=== PATIENT | female | born 1965 | race Caucasian/White ===

== ENCOUNTER → 2024-12-04 | Outpatient (CLI) | payer OTHER ==
--- NOTE | 2024-12-04 11:33 | XR ---
EXAMINATION TYPE: XR lumbosacral spine min 4V DATE OF EXAM: 12/04/2024 11:23 AM INDICATION: Patient age:Female; 58 years old; Reason for study: [id number] IDD; [facility]. pain COMPARISON: None TECHNIQUE: Frontal, lateral , bilateral oblique and coned in L5-S1 lateral views of the spine. FINDINGS: There are 5 lumbar type vertebral bodies identified. No evidence of any acute osseous patho logy. No evidence of loss of vertebral body height is seen. There is normal alignment of the lumbar vertebral bodies. Minimal dextrocurvature of the lumbar spine. Multilevel disc space narrowing with e ndplate sclerosis. Multilevel facet arthropathy of the lower lumbar spine. IMPRESSION: 1. No acute process. 2. Multilevel degenerative disc disease and facet arthropathy. [facility], , 12/04/2024 11:31 AM
== END | disposition home or self-care (01) ==
LOC: RADXRYALE 10:13
PROVIDERS: ATTEND Physician Assistant
DX: M51.361 Other intervertebral disc degeneration, lumbar region with lower extremity pain only (principal); M47.816 Spondylosis without myelopathy or radiculopathy, lumbar region
CPT/HCPCS: 72110